=== PATIENT | female | born 2000 | race Caucasian/White ===

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

== ENCOUNTER 2019-02-04 13:22 | Emergency (ER) | payer OTHER ==
[2019-02-04] MEDS ORDERED: NS 1,000 ML IV ONE (13:50)
[2019-02-04] MEDS ORDERED: MAG HYDROX/AL HYDROX/SIMETH 30 ML UDCUP PO ONE (13:51)
[2019-02-04] MEDS ORDERED: ONDANSETRON 4 MG/2 ML VIAL IVP ONE (13:51)
[2019-02-04] MEDS ORDERED: HYOSCYAMINE SULFATE 0.125 MG TAB PO ONE (13:51)
[2019-02-04] MEDS ORDERED: LIDOCAINE 2% VISCOUS 15 ML UDCUP PO ONE (13:51)
--- NOTE | 2019-02-04 13:55 | EDPHY ---
H & P Stated Complaint: vomiting blood starting this morning, for 4 months has been vomiting Time Seen by Provider: 02/04/19 13:43 HPI/ROS: CHIEF COMPLAINT: "I am vomiting blood" HISTORY OF PRESENT ILLNESS: 18-year-old female complaining hematemesis since this morning described as "strings of blood" in her emesis. She describes daily emesis for 4 months. Has not sought medical attention for this. Before coming to the ER she ate a bagel sandwich and lilia latte which she tolerated well. She is currently complaining of mild nausea however. Denies abdominal pain. Denies syncope or near-syncope. Denies back or flank pain. Denies melena hematochezia. REVIEW OF SYSTEMS: 10 systems reviewed and negative with the exception of the elements mentioned in the history of present illness PAST MEDICAL & SURGICAL HISTORY: No pertinent medical or surgical history. No chronic NSAID use. SOCIAL HISTORY: Student PHYSICAL EXAM (Prior to examination, patient consented to physical exam, hands were washed and my usual and customary physical exam procedures followed) 1) GENERAL: Well-developed, well-nourished, alert and oriented. Appears to be in no acute distress. Texting on her phone. Appears comfortable. 2) HEAD: Normocephalic, atraumatic 3) HEENT: Pupils equal, round, reactive to light bilaterally. Sclera anicteric. Nasopharynx, oropharynx, clear, no lesions. Moist Mucous membranes. No fetid odor 4) NECK: Full range of motion, no meningeal signs. 5) LUNGS: Clear auscultation bilaterally, no wheezes, no rhonchi, no retractions. 6) HEART: Regular rate and rhythm, no murmur, no heave, no gallop. 7) ABDOMEN: No guarding, no rebound, no focal tenderness, negative McBurney's, negative Rosales's, negative Rovsing's, negative peritoneal sign, I am unable to elicit any abdominal pain 8) MUSCULOSKELETAL: Moving all extremities, no focal areas of tenderness, no obvious trauma. No peripheral edema or discoloration. 9) BACK: No CVA tenderness, no midline vertebral tenderness, no fluctuance, no step-off, no obvious trauma, no visual or palpable abnormality. 10) SKIN: No rash, no petechiae. 11) Psychiatric: Patient is oriented X 3, there is no agitation. DIFFERENTIAL DIAGNOSIS: In no particular order including but not limited to upper GI bleed, lower GI bleed, anemia - Personal History LMP (Females 10-55): Now Current Tetanus Diphtheria and Acellular Pertussis (TDAP): Yes - Medical/Surgical History Hx Asthma: No Hx Chronic Respiratory Disease: No Hx Diabetes: No Hx Cardiac Disease: No Hx Renal Disease: No Hx Cirrhosis: No Hx Alcoholism: No Hx HIV/AIDS: No Hx Splenectomy or Spleen Trauma: No Other PMH: denies - Social History Smoking Status: Never smoked Constitutional: Initial Vital Signs Temperature (C) 36.8 C 02/04/19 13:37 Heart Rate 93 02/04/19 13:37 Respiratory Rate 18 02/04/19 13:37 Blood Pressure 117/69 02/04/19 13:37 O2 Sat (%) 96 02/04/19 13:37 O2 Delivery Mode Room Air Allergies/Adverse Reactions: No Known Allergies Allergy (Unverified 07/30/17 12:41) Home Medications: Medication Instructions Recorded Naproxen [Naprosyn] 500 mg PO BID #30 tablet 08/27/18 Ondansetron Odt [Zofran Odt 4 mg 4 mg PO Q4 PRN #12 tab 08/27/18 (*)] oxyCODONE HCL/ACETAMINOPHEN 1 each PO Q4-6PRN PRN #7 tablet 08/27/18 [Percocet 5-325 mg Tablet] Pantoprazole Sodium [Protonix 40mg 40 mg PO DAILY #30 tab 02/04/19 (RX)] Medical Decision Making ED Course/Re-evaluation: 1:54 p.m.: Patient currently appears well. I am unable to elicit any abdominal pain on exam whatsoever. Before coming to the ER she ate a bagel sandwich and lilia latte. At this time doubt hypovolemia secondary to blood loss , doubt acute surgical abdominal pathology. Will check laboratory studies, Mr. LIA quintana, initiate PPI therapy and strongly encouraged her to follow up with Gastroenterology and will provide her with this referral information. Care of patient under supervision of secondary supervising physician Dr Marina . 2:40 p.m.: Re-evaluation. Abdomen soft no guarding no rebound. Tolerating oral intake. Discussed and reviewed her laboratory results. Doubt acute surgical abdominal pathology at this time. Strongly recommended follow up with Gastroenterology and provided this referral information. I do not think that hospitalization or emergent gastroenterology consultation is indicated at this time. - Data Points Laboratory Results: Laboratory Results 02/04/19 13:50 02/04/19 13:50 02/04/19 02/04/19 02/04/19 13:50 13:50 13:50 WBC RBC Hgb Hct MCV MCH MCHC RDW Plt Count MPV Neut % (Auto) Lymph % (Auto) Dent % (Auto) Eos % (Auto) Baso % (Auto) Nucleat RBC Rel Count Absolute Neuts (auto) Absolute Lymphs (auto) Absolute Monos (auto) Absolute Eos (auto) Absolute Basos (auto) Absolute Nucleated RBC Immature Gran % Immature Gran # PT 12.2 SEC SEC (12.0-15.0) INR 0.94 (0.83-1.16) APTT 28.7 SEC SEC (23.0-38.0) Sodium 135 mEq/L mEq/L (135-145) Potassium 4.3 mEq/L mEq/L (3.5-5.2) Chloride 104 mEq/L mEq/L (97-110) Carbon Dioxide 21 mEq/l L mEq/l (22-31) Anion Gap 10 mEq/L mEq/L (6-14) BUN 15 mg/dL mg/dL (7-23) Creatinine 0.6 mg/dL mg/dL (0.6-1.0) Estimated GFR > 60 Glucose 88 mg/dL mg/dL (70-100) Calcium 9.6 mg/dL mg/dL (8.5-10.4) Total Bilirubin 0.2 mg/dL mg/dL (0.1-1.4) Conjugated Bilirubin 0.2 mg/dL mg/dL (0.0-0.5) Unconjugated Bilirubin 0.0 mg/dL mg/dL (0.0-1.1) AST 23 IU/L IU/L (14-46) ALT 22 IU/L IU/L (9-52) Alkaline Phosphatase 82 IU/L IU/L (38-126) Total Protein 6.9 g/dL g/dL (6.3-8.2) Albumin 3.9 g/dL g/dL (3.5-5.0) Lipase 154 IU/L IU/L (23-300) Beta HCG, Qual NEGATIVE 02/04/19 13:50 WBC 8.56 10^3/uL 10^3/uL (3.80-9.50) RBC 5.12 10^6/uL 10^6/uL (4.18-5.33) Hgb 13.6 g/dL g/dL (12.6-16.3) Hct 40.3 % % (38.0-47.0) MCV 78.7 fL L fL (81.5-99.8) MCH 26.6 pg L pg (27.9-34.1) MCHC 33.7 g/dL g/dL (32.4-36.7) RDW 13.2 % % (11.5-15.2) Plt Count 305 10^3/uL 10^3/uL (150-400) MPV 9.7 fL fL (8.7-11.7) Neut % (Auto) 63.1 % % (39.3-74.2) Lymph % (Auto) 27.3 % % (15.0-45.0) Dent % (Auto) 7.5 % % (4.5-13.0) Eos % (Auto) 1.5 % % (0.6-7.6) Baso % (Auto) 0.5 % % (0.3-1.7) Nucleat RBC Rel Count 0.0 % % (0.0-0.2) Absolute Neuts (auto) 5.40 10^3/uL 10^3/uL (1.70-6.50) Absolute Lymphs (auto) 2.34 10^3/uL 10^3/uL (1.00-3.00) Absolute Monos (auto) 0.64 10^3/uL 10^3/uL (0.30-0.80) Absolute Eos (auto) 0.13 10^3/uL 10^3/uL (0.03-0.40) Absolute Basos (auto) 0.04 10^3/uL 10^3/uL (0.02-0.10) Absolute Nucleated RBC 0.00 10^3/uL 10^3/uL (0-0.01) Immature Gran % 0.1 % % (0.0-1.1) Immature Gran # 0.01 10^3/uL 10^3/uL (0.00-0.10) PT INR APTT Sodium Potassium Chloride Carbon Dioxide Anion Gap BUN Creatinine Estimated GFR Glucose Calcium Total Bilirubin Conjugated Bilirubin Unconjugated Bilirubin AST ALT Alkaline Phosphatase Total Protein Albumin Lipase Beta HCG, Qual Medications Given: Discontinued Medications Al Hydroxide/Mg Hydroxide (Maalox Susp) 30 ml PO ONCE ONE Stop: 02/04/19 13:52 Last Admin: 02/04/19 14:21 Dose: 30 ml Hyoscyamine Sulfate (Levsin, Hyomax-Sl) 0.25 mg PO ONCE ONE Stop: 02/04/19 13:52 Last Admin: 02/04/19 14:16 Dose: 0.25 mg Sodium Chloride (Ns) 1,000 mls @ 0 mls/hr IV EDNOW ONE; Wide Open PRN Reason: Protocol Stop: 02/04/19 13:51 Last Admin: 02/04/19 14:17 Dose: 1,000 mls Lidocaine (Lidocaine 2% Viscous) 15 ml PO ONCE ONE Stop: 02/04/19 13:52 Last Admin: 02/04/19 14:17 Dose: 15 ml Ondansetron HCl (Zofran) 4 mg IVP EDNOW ONE Stop: 02/04/19 13:52 Last Admin: 02/04/19 14:17 Dose: 4 mg Departure - Departure Disposition: Home, Routine, Self-Care Clinical Impression: Chronic vomiting Hematemesis Qualifiers: Nausea presence: with nausea Qualified Code(s): K92.0 - Hematemesis Condition: Good Instructions: Acute Nausea and Vomiting (ED), Hematemesis (ED) Additional Instructions: Seek immediate medical attention if you develop new or worsening symptoms, if you develop fevers, chills, inability to tolerate oral intake or any other symptoms that concerns you. Referrals: Stef Yanez MD, FACG [Medical Doctor] - 2-3 days, call for appt. Stand Alone Forms: School Excuse, Work Excuse Prescriptions: Pantoprazole Sodium [Protonix 40mg (RX)] 40 mg PO DAILY #30 tab
[2019-02-04 14:00] LABS: PLATELET COUNT 305 10^3/uL (150-400)
[2019-02-04 14:07] LABS: INR 0.94 (0.83-1.16); PROTIME(PATIENT) 12.2 SEC (12.0-15.0)
[2019-02-04 14:56] VITALS: BP 128/78
== END 2019-02-04 14:56 | disposition home or self-care (01) ==
DX: K92.0 Hematemesis (principal)
CPT/HCPCS: 96374; J2405

== ENCOUNTER 2019-02-06 00:23 | Emergency (ER) | payer OTHER ==
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
[2019-02-06 01:31] VITALS: BP 134/73
== END 2019-02-06 01:32 | disposition home or self-care (01) ==
LOC: EEVIPCON 00:23
DX: T76.21XA Adult sexual abuse, suspected, initial encounter (principal)